=== PATIENT | male | born 1965 | race African-American/Black ===

== ENCOUNTER 2019-03-16 12:41 | Inpatient (IN) | payer OTHER ==
[~2019-03-16] VITALS: Ht 170.2 cm; Wt 69.9 kg
[2019-03-16 12:53] VITALS: BP 100/55
--- NOTE | 2019-03-16 12:56 | NUR ---
BIB SELF C/O MOUTH PAIN & COUGH, WEAKNESS X 3 DAYS MED HX: HIV
--- NOTE | 2019-03-16 12:56 | NUR ---
BIB SELF C/O MOUTH PAIN & COUGH, WEAKNESS X 3 DAYS. MED HX: HIV. PATIENT STATES PAIN OF 7/10 AT THIS TIME; VSS; PATIENT POSITIONED FOR COMFORT; HOB ELEVATED; BEDRAILS UP X1; BED DOWN. ER MD MADE AWARE OF PT STATUS.
[2019-03-16] MEDS ORDERED: FLUCONAZOLE 200 MG/NS PREMIX 100 ML IV ONE (13:25)
[2019-03-16] MEDS ORDERED: MORPHINE SULFATE 4 MG/ML SYR IVP ONE (13:25)
[2019-03-16] MEDS ORDERED: NACL 0.9% 1,000 ML IV ONE (13:25)
[2019-03-16 14:23] LABS: BASOPHILS % (AUTO) 0.1 % (0.0-2.0); EOSINOPHILS # (AUTO) 0.1 K/uL (0-0.4); EOSINOPHILS % (AUTO) 1.3 % (0.0-4.0); HEMATOCRIT 38.4 % (36-52); HEMOGLOBIN 12.4 g/dL (12.0-18.0); LYMPHOCYTES # (AUTO) 1.2 K/uL (2.0-11.5); LYMPHOCYTES % (AUTO) 23.7 % (20.5-51.1); MEAN CORPUSCULAR HEMOGLOBIN 28 pg (27-31); MEAN CORPUSCULAR HGB CONC 32 g/dL (33-37); MEAN CORPUSCULAR VOLUME 87.5 fL (80-94); MONOCYTES # (AUTO) 0.4 K/uL (0.8-1.0); MONOCYTES % (AUTO) 7.6 % (1.7-9.3); NEUTROPHILS # (AUTO) 3.5 K/uL (1.8-7.7); NEUTROPHILS % (AUTO) 67.3 % (42.2-75.2); PLATELET COUNT (AUTO) 206 K/uL (140-450); RED BLOOD CELL COUNT(AUTO) 4.38 MIL/uL (4.20-6.10); RED CELL DISTRIBUTION WIDTH 16.4 % (11.6-13.7); WHITE BLOOD COUNT (AUTO) 5.2 K/uL (4.8-10.8)
[2019-03-16] MEDS ORDERED: ATAZ300C PO (14:23)
[2019-03-16] MEDS ORDERED: EMTR1TAB12 PO (14:23)
[2019-03-16] MEDS ORDERED: NOR100 PO (14:23)
[2019-03-16 14:33] LABS: ANION GAP 6.3 (8-16); CARBON DIOXIDE 32.5 mmol/L (21-32); CREATININE 1.1 mg/dL (0.7-1.3); POTASSIUM 3.8 mmol/L (3.5-5.1)
[2019-03-16 14:39] LABS: ALBUMIN 2.7 g/dL (3.4-5.0); TOTAL BILIRUBIN 0.2 mg/dL (0.0-1.0)
[2019-03-16] MEDS ORDERED: POTASSIUM CHLORIDE 10 MEQ TABER PO PRN (14:40)
[2019-03-16] MEDS ORDERED: ZOLPIDEM 5 MG TAB PO PRN (14:40)
[2019-03-16] MEDS ORDERED: MAGNESIUM OXIDE 400 MG TAB PO PRN (14:40)
[2019-03-16] MEDS ORDERED: HYDROcodone/APAP 5/325 MG 1 TAB TAB PO PRN ×2 (14:40)
[2019-03-16] MEDS ORDERED: IPRATROPIUM 0.02% 0.5 MG/2.5 ML NEBU INH PRN (14:40)
[2019-03-16] MEDS ORDERED: ACETAMINOPHEN 325 MG TAB PO PRN (14:40)
[2019-03-16] MEDS ORDERED: BISACODYL 10 MG SUPP RC PRN (14:40)
[2019-03-16] MEDS ORDERED: ALBUTEROL 0.083% 2.5 MG/3 ML NEBU INH PRN (14:40)
[2019-03-16] MEDS ORDERED: MORPHINE SULFATE 2 MG/ML SYR IVP PRN (14:40)
[2019-03-16] MEDS ORDERED: DOCUSATE SODIUM 250 MG GELCAP PO PRN (14:40)
[2019-03-16] MEDS ORDERED: ACETAMINOPHEN 650 MG SUPP RC PRN (14:40)
[2019-03-16] MEDS ORDERED: ALUMINUM HYD/MAG/SIMETHICONE 30 ML UDC PO PRN (14:40)
[2019-03-16] MEDS ORDERED: guaiFENesin DM 200/20 MG-10 ML 10 ML UDC PO PRN (14:40)
[2019-03-16] MEDS ORDERED: MAG SULF 2000 MG/WATER PREMIX 50 ML IV PRN (14:40)
[2019-03-16] MEDS ORDERED: SODIUM PHOSPHATE 118 ML ENEM RC PRN (14:40)
[2019-03-16] MEDS ORDERED: LORazepam 2 MG/ML VIAL IVP PRN (14:40)
[2019-03-16] MEDS ORDERED: cloNIDine 0.1 MG TAB PO PRN (14:40)
[2019-03-16] MEDS ORDERED: ONDANSETRON 4 MG/2 ML VIAL IVP PRN (14:40)
[2019-03-16] MEDS ORDERED: diphenhydrAMINE 50 MG/ML VIAL IVP PRN (14:40)
--- NOTE | 2019-03-16 14:55 | NUR ---
Patient will be admitted to care of DR JAIN. Admited to MS. Will go to room 1`12B. Belongings list completed. Report to COLLEEN RAINEY.
[2019-03-16 15:00] VITALS: BP 107/69
--- NOTE | 2019-03-16 15:00 | NUR ---
RECEIVED REPORT FROM EMERGENCY ROOM NURSE FOR CONTINUITY OF CARE. PT IN STABLE CONDITION. IV INTACT AND PATENT. RESPIRATIONS EVEN AND UNLABORED. SAFETY MEASURES IN PLACE. BED IN LOW POSITION. CALL LIGHT AT BEDSIDE. WILL CONTINUE TO MONITOR.
--- NOTE | 2019-03-16 16:01 | NUR ---
PT LYING IN BED SLEEPING AT THIS TIME. RESPIRATIONS EVEN AND UNLABORED. BED IN LOW POSITION. CALL LIGHT AT BEDSIDE. WILL CONTINUE TO MONITOR.
[2019-03-16] MEDS: DEXT 5% / NACL 0.45% 1,000 ML IV SCH (16:08)
--- NOTE | 2019-03-16 18:15 | NUR ---
PT LYING IN BED WATCHING TV. RESPIRATIONS EVEN AND UNLABORED. BED IN LOW POSITION. CALL LIGHT AT BEDSIDE. WILL CONTINUE TO MONITOR.
--- NOTE | 2019-03-16 19:25 | NUR ---
RECIEVED PT AAOX4 , IV SITE INTACT AND PATENT , POST I AND D OF THE RIGHT ARM - WRAPPED WITH ELACTIC BANDANGE - NO SIGNS OF BLEEDING NOTED AT THIS TIME , WITH BEARABLE PAIN HE SAID , ON SAFETY / FALL PRECAUTION PROTOCOL - CALL LIGHT WITHIN REACH , PLAN OF CARE DISCUSSED AND VERBALIZE UNDERSTANDING , WITH OLD SCABS ON LEFT UPPER ARM AND LEFT LOWER LEG BUT SKIN INTACT . WILL CONT. TO MONITOR. Addendum: 03/16/19 at 2201 by Dannielle Smith RN THE ABOVE NURSES NOTES ENTRY IS AN ERROR ENTRY - [id number]
--- NOTE | 2019-03-16 19:25 | NUR ---
GAVE REPORT TO WELDER NURSE BENJAMIN FOR CONTINUITY OF CARE. PT IN STABLE CONDITION.
--- NOTE | 2019-03-16 19:25 | NUR ---
RECIEVED PT. AAOX4 , NID , IV SITE INTACT AND PATENT , NID , WITH ORAL THRUSH , WITH BEARABLE PAIN HE SAID AT THIS TIME , PLAN OF CARE DISCUSSED AND VERBALIZE UNDERSTANDING , ON SAFETY PRECAUTION PROTOCOL - CALL LIGHT WITHIN REACH . WILL CONT. TO MONITOR.
[2019-03-16 20:00] VITALS: BP 140/90
--- NOTE | 2019-03-16 22:00 | NUR ---
MADE ROUNDS , NO SIGNS OF DISTRESS NOTED AT THIS TIME , WILL CONT. TO MONITOR. CALL LIGHT WITHIN REACH.
[2019-03-17] VITALS: BP 112/60
--- NOTE | 2019-03-17 | NUR ---
MADE ROUNDS , NO SIGNS OF DISTRESS NOTED AT THIS TIME , CALL LIGHT WITHIN REACH
[2019-03-17] MEDS: DEXT 5% / NACL 0.45% 1,000 ML IV SCH ×3 (03:00→13:18)
[2019-03-17 04:00] VITALS: BP 111/60
--- NOTE | 2019-03-17 04:00 | NUR ---
MADE ROUNDS , NO SIGNS OF DISTRESS NOTED AT THIS TIME , CALL LIGHT WITHIN REACH
--- NOTE | 2019-03-17 07:15 | NUR ---
RECEIVED REPORT FROM HEEL SEAT SANDER NURSE. PT AAOX4, NO C/O PAIN AT THIS TIME, VSS. IV ON LT AC 20 GA RUNNING IVF PER ORDER. RESPIRATIONS EVEN AND UNLABORED ON RA. ACTIVE BS, SOFT ABD. SAFETY MEASURES IN PLACE, BED ON LOW POSITION, CALL LIGHT WITHIN REACH. EDUCATED PT TO RINSE MOUTH WITH ALCOHOL FREE MOUTHWASH THAT IS PROVIDED TO HIM D/T ORAL TRUSH. REVIEWED POC WITH PT, PT VERBALIZED UNDERSTANDING.
[2019-03-17 08:00] VITALS: BP 107/72
--- NOTE | 2019-03-17 08:04 | NUR ---
PATIENT HAS BEEN SCREENED AND CATEGORIZED HIGH NUTRITION RISK. PATIENT WILL BE SEEN WITHIN 1-2 DAYS OF ADMISSION. 03/17/19-03/18/[address]
[2019-03-17] MEDS: ENOXAPARIN 40 MG/0.4 ML SYR SUBQ SCH (09:21)
--- NOTE | 2019-03-17 09:21 | NUR ---
ADMINISTERED LOVENOX PER ORDER. PT IS AWARE OF INDICATION AND POTENTIAL SIDE EFFECTS OF MEDICATION. PT ALSO C/O LEVEL 6/10 THROAT PAIN. GIVEN NORCO PER ORDER. WILL REASSESS WITHIN 1 HOUR.
--- NOTE | 2019-03-17 09:28 | NUR ---
ASSISTED PT WITH ORAL CARE. PT IS COOPERATIVE AND TOLERATED ALCOHOL FREE MOUTHWASH.
--- NOTE | 2019-03-17 11:07 | NUR ---
DR. NAVA AT BEDSIDE, PT'S CONCERNS WERE DISCUSSED AND QUESTIONS ANSWERED.
--- NOTE | 2019-03-17 11:55 | NUR ---
CONTACTED PATIENT'S PCP [facility] DR. BARNES, [facility], ABLE TO SPEAK TO DONATO REGARDING POST DC APPOINTMENT. SHE PROVIDED ME WITH Mar AT 1415 PM. COPY OF APPOINTMENT PROVIDED TO THE PATIENT.
[2019-03-17] MEDS: ACYCLOVIR 800 MG TAB PO SCH ×2 (13:16→16:50)
[2019-03-17] MEDS ORDERED: FLUCONAZOLE 200 MG/NS PREMIX 100 ML IV SCH (14:00)
--- NOTE | 2019-03-17 14:25 | NUR ---
ADMINISTERED IV DIFLUCAN PER ORDER, PT IS AWARE OF INDICATIONS AN POTENTIAL SIDE EFFECTS. PT HAS NO C/O PAIN AT THIS TIME.
--- NOTE | 2019-03-17 15:53 | NUR ---
03/17/19 RD INITIAL ASSESSMENT COMPLETED PLEASE REFER TO NUTRITION ASSESSMENT UNDER CARE ACTIVITY FOR ESTIMATED NUTRITIONAL NEEDS. 1. CONTINUE SOFT DIET TOLERATED 2. IF/WHEN CLINICALLY STABLE, CONSIDER ADVANCE DIET TOLERATED TO REGULAR DIET. 3. RD TO FOLLOW-UP 3-5 DAYS, MODERATE RISK ARIELLE BRAVO RD
[2019-03-17 16:00] VITALS: BP 112/80
--- NOTE | 2019-03-17 16:50 | NUR ---
ADMINISTERED ACYCLOVIR PER ORDER. PT IS AWARE OF INDICATIONS AND POTENTIAL SIDE EFFECTS OF MEDICATION.
--- NOTE | 2019-03-17 18:00 | NUR ---
ASSISTED PT WITH ORAL CARE. PT HAS NO SIGNS OF DISTRESS AT THIS TIME.
--- NOTE | 2019-03-17 19:10 | NUR ---
RECEIVED REPORT FORM RN DAYSHIFT NURSE AT BEDSIDE FOR CONTINUITY OF CARE, PT INSTABLE CONDITION.
--- NOTE | 2019-03-17 19:10 | NUR ---
ENDORSED PT TO WEIGHER PRODUCTION NURSE. PT HAS NO SIGNS OF DISTRESS AT THIS TIME.
[2019-03-17 20:00] VITALS: BP 112/74
[2019-03-17] MEDS: MULTIVITAMIN 1 TAB PO SCH (20:04)
--- NOTE | 2019-03-17 20:20 | NUR ---
RECEIVED PATIENT ON ROOM AIR, PULSE OX SAT 98%. PATIENT DENIES ANY SOB. PRN BREATHING TREATMENT NOT INDICATED AT THIS TIME. NO ACUTE RESPIRATORY DISTRESS NOTED. WILL CONTINUE TO MONITOR.
--- NOTE | 2019-03-17 21:30 | NUR ---
PT IN LOW BED SIDE RIALS UP X2 AND IV SITE ON LEFT AC 20G RUNNING D51/2 NS AT 100MLS /HR. IV SITE INTACT AND FLUSHED PATENT. PT DENIES PAIN. PT GIVEN ORDERED MULTIVITAMIN WHOLE WITH NO SWALLOWING ISSUES. V/S FOLLOWS T 97.6 P 75 R 18 B/P 112/74 02 %. CALL PENDLETON IN REACH, ALL REQUESTED NEEDS ATTENDED BY STAFF.
--- NOTE | 2019-03-17 21:30 | NUR ---
PT IN LOW BED WITH SIDE RAILS UP X2. HE IS AOX4 WITH DRY AND INTACT ABUNDIO BANDAGE OVER LEFT ARM. SOME EDEMA OF RIGHT HAND NOTED. PT C/O OF 7/10 PAIN IN RIGHT ARM AND WAS GIVEN MORPHINE IVP ORDERED. IV SITE ON LEFT F/A 18 GUAGE INTACT AND FLUSHED PATENT. IV FLUIDS RUNNING ARE D5 1/2 NS AT 100MLS/HR. V/S FOLLOWS T 97.6 P 75 R 18 B/P 112/74 02 100% ON ROOM AIR. PT DENIES PAIN BED LOW CALL PENDLETON IN REACH AND ALL REQUESTED NEEDS ATTENDED BY STAFF. Addendum: 03/18/19 at 0411 by Consuelo Acosta RN WRONG CHART/ WRONG PT
[2019-03-18] VITALS: BP 120/80
--- NOTE | 2019-03-18 | NUR ---
PT IN BED SIDE RIALS UP X2 NO C/O VOICED BY PT V/S FOLLOWS T 98.1 P 56 R 18 B/P 129/80 02 100% ON ROOM AIR. ALL REQUESTED NEEDS ATTENDED. BY STAFF. IV SITE INTACT AND RUNNING D51/2 NS ORDERED. CALL PENDLETON IN REACH.
[2019-03-18] MEDS: DEXT 5% / NACL 0.45% 1,000 ML IV SCH (06:50)
--- NOTE | 2019-03-18 07:15 | NUR ---
RECEIVED REPORT FORM WASTEWATER PROCESS ENGINEER NURSE. PT AAOX4, NO C/O PAIN AT THIS TIME, VSS. IV ON LT AC 20 GA RUNNING IVF PER ORDER. ACTIVE BS, SOFT ABD. SKIN IS INTACT, WARM TO TOUCH. PT'S STATES "MY MOUTH LOOKS BETTER". PT AMBULATES INDEPENDENTLY WITH STEADY GAIT. REVIEWED POC WITH PT, PT VERBALIZED UNDERSTANDING.
[2019-03-18 08:00] VITALS: BP 110/68
[2019-03-18 08:07] LABS: BASOPHILS % (AUTO) 0.6 % (0.0-2.0); EOSINOPHILS # (AUTO) 0.2 K/uL (0-0.4); EOSINOPHILS % (AUTO) 5.6 % (0.0-4.0); HEMATOCRIT 37.6 % (36-52); HEMOGLOBIN 12.2 g/dL (12.0-18.0); LYMPHOCYTES # (AUTO) 1.4 K/uL (2.0-11.5); LYMPHOCYTES % (AUTO) 42.5 % (20.5-51.1); MEAN CORPUSCULAR HEMOGLOBIN 28 pg (27-31); MEAN CORPUSCULAR HGB CONC 33 g/dL (33-37); MEAN CORPUSCULAR VOLUME 87.4 fL (80-94); MONOCYTES # (AUTO) 0.3 K/uL (0.8-1.0); MONOCYTES % (AUTO) 9.1 % (1.7-9.3); NEUTROPHILS # (AUTO) 1.4 K/uL (1.8-7.7); NEUTROPHILS % (AUTO) 42.2 % (42.2-75.2); PLATELET COUNT (AUTO) 214 K/uL (140-450); RED CELL DISTRIBUTION WIDTH 16.6 % (11.6-13.7); WHITE BLOOD COUNT (AUTO) 3.3 K/uL (4.8-10.8)
--- NOTE | 2019-03-18 08:30 | NUR ---
ASSISTED PT TO BATHROOM, GIVEN BATHING SUPPLIES. PT HAS NO SIGNS OF DISTRESS AT THIS TIME.
[2019-03-18] MEDS: MULTIVITAMIN 1 TAB PO SCH (09:23)
[2019-03-18] MEDS: ACYCLOVIR 800 MG TAB PO SCH ×2 (09:23→12:17)
--- NOTE | 2019-03-18 09:23 | NUR ---
ADMINISTERED THERAGRAN, ZOVIRAX AND LOVENOX PER ORDER, PT IS AWARE OF INDICATIONS AND POTENTIAL SIDE EFFECTS.
[2019-03-18] MEDS: ENOXAPARIN 40 MG/0.4 ML SYR SUBQ SCH (09:28)
--- NOTE | 2019-03-18 10:50 | NUR ---
PT IN FRONT PATIO, TRANSFERRED OUT OF UNIT WITH STEADY GAIT, ASSISTED BY NURSING STUDENTS. PT HAS NO SIGNS OF DISTRESS AT THIS TIME.
[2019-03-18] MEDS ORDERED: FLUC200T PO (11:11)
[2019-03-18] MEDS ORDERED: INFLUENZA VACCINE QUAD 0.5 ML SYR IM SCH (11:50)
--- NOTE | 2019-03-18 12:17 | NUR ---
ADMINISTERED ACYCLOVIR PER ORDER. PT STATES "I'VE HAD THE FLU VACCINE BEFORE, AND HAD NO REACTIONS TO IT". GIVEN FLU VACCINE TO LT DELTOID. PT TOLERATED WELL. WILL MONITOR PT.
--- NOTE | 2019-03-18 12:50 | NUR ---
PT HAS BEEN DISCHARGED. ALL PAPERWORK SIGNED, ALL QUESTIONS ANSWERED. ALL BELONGINGS, BICYCLE, HOMELESS RESOURCES, PACKLED LUNCH AND PRESCRIPTION IN PT POSSESSION. IV DISCONTINUED WITH CANNULA INTACT. WRISTBANDS REMOVED. PT REFUSED WHEELCHAIR, AMBULATED OUT OF UNIT WITH STEADY GAIT. PT IS IN STABLE CONDITION.
== END 2019-03-18 12:50 | disposition home or self-care (01) | DRG 893 ==
LOC: MED 12:41 → MTU 14:20
PROVIDERS: ADMIT Internal Medicine Pulmonary Disease; ATTEND Internal Medicine Pulmonary Disease
DX: B20 Human immunodeficiency virus [HIV] disease (principal); B37.81 Candidal esophagitis; E44.0 Moderate protein-calorie malnutrition; B37.89 Other sites of candidiasis; B37.0 Candidal stomatitis; B00.9 Herpesviral infection, unspecified; F17.210 Nicotine dependence, cigarettes, uncomplicated; E86.0 Dehydration; E56.9 Vitamin deficiency, unspecified; Z59.0 Homelessness; Z68.24 Body mass index [BMI] 24.0-24.9, adult; Z88.2 Allergy status to sulfonamides; Z79.899 Other long term (current) drug therapy
CPT/HCPCS: 36415; 71045; 80053; 83605; 85025; 86360; 87040; 87081; 96365; 96375; 99285; J1450; J1650; J2270; J7030; Q0092